=== PATIENT | male | born 1960 | race Asian ===

== ENCOUNTER 2017-10-17 00:03 | Emergency (ER) | payer OTHER ==
[2017-10-17 00:07] VITALS: TEMP 98.1
[2017-10-17 00:43] VITALS: RESP 18; O2SAT 96
[2017-10-17 00:45] VITALS: BP 151/89; PULSE 85
--- NOTE | 2017-10-17 00:48 | EDPHY ---
H & P Stated Complaint: HTN & dizzy Time Seen by Provider: 10/17/17 00:24 HPI/ROS: Chief Complaint: Dizzy, hypertension HPI: 57-year-old male with a history of hypertension presenting with 2 days of intermittent dizziness. Patient states he has been checking his blood pressure has been getting as high as 170 systolic. He has been checking it multiple times a day. He has also noticed he has been having some dizziness with the room spinning. This morning he woke up, sat up from bed and turned his head and the whole room began spinning. This last for about half a minute. Is no nausea or vomiting. No headache. No fevers or chills. Did have viral upper respiratory symptoms several days ago but these have since improved. ROS: 10 point Review of Systems is negative except as noted in the HPI. PMH: Hypertension Social History: No smoking, no alcohol, no recreational drug use Family History: non-contributory Physical Exam: Gen: Awake, Alert, No Distress HEENT: Nose: no rhinorrhea Eyes: PERRLA, EOMI Mouth: Moist mucosa Neck: Supple, no JVD Chest: nontender, lungs clear to auscultation Heart: S1, S2 normal, no murmur Abd: Soft, non-tender, no guarding Back: no CVA tenderness, no midline tenderness Ext: no edema, non-tender Skin: no rash Neuro: CN II-XII intact, Sensation grossly intact, Strength 5/5 in bilateral upper and lower extremities, normal finger-nose, normal Romberg positive Cirilo-Hallpike test to the right - Personal History Current Tetanus/Diphtheria Vaccine: Yes Current Tetanus Diphtheria and Acellular Pertussis (TDAP): Yes Tetanus Vaccine Date: within 10 years - Medical/Surgical History Hx Asthma: No Hx Chronic Respiratory Disease: No Hx Diabetes: No Hx Cardiac Disease: No Hx Renal Disease: No Hx Cirrhosis: No Hx Alcoholism: No Hx HIV/AIDS: No Hx Splenectomy or Spleen Trauma: No Other PMH: HTN - Social History Smoking Status: Former smoker Constitutional: Initial Vital Signs Temperature (C) 36.7 C 10/17/17 00:05 Heart Rate 106 H 10/17/17 00:05 Respiratory Rate 20 10/17/17 00:05 Blood Pressure 149/93 H 10/17/17 00:05 O2 Sat (%) 97 10/17/17 00:05 O2 Delivery Mode Room Air Allergies/Adverse Reactions: No Known Allergies Allergy (Unverified 04/13/13 22:58) Home Medications: Medication Instructions Recorded amLODIPine BESYLATE [Norvasc] 10 mg PO DAILY 04/13/13 Duloxetine HCl [Cymbalta] 30 mg PO Q2D 04/14/13 Duloxetine HCl [Cymbalta] 60 mg PO Q2D 04/14/13 Md Hankins [id number] 04/14/13 Pharmacy Complete 04/14/13 04/14/13 Meclizine HCl [Meclizine HCl 25 mg 25 mg PO BID #10 tab 10/17/17 (RX,OTC)] Medical Decision Making ED Course/Re-evaluation: 57-year-old male with positional vertigo with a positive Cirilo-Hallpike test. Will perform the Rubens maneuver and reassess. Patient is improved. I have reassured him about his blood pressure. I think this is secondary to his dizziness. He has no headache or any other neurologic findings. Will discharge with follow-up with primary care physician, return for any concerns. Departure - Departure Disposition: Home, Routine, Self-Care Clinical Impression: Benign positional vertigo Condition: Good Instructions: Benign Paroxysmal Positional Vertigo (ED) Additional Instructions: You may take meclizine as needed for your vertigo. Follow up with her primary care physician in 2-3 days for re-evaluation. Return to the emergency department for uncontrolled vertigo, nausea, vomiting, fevers, chills, or any other concerns. Referrals: Dustin Davison MD [Primary Care Provider] - As per Instructions Prescriptions: Meclizine HCl [Meclizine HCl 25 mg (RX,OTC)] 25 mg PO BID #10 tab
== END 2017-10-17 01:07 | disposition home or self-care (01) ==
DX: H81.10 Benign paroxysmal vertigo, unspecified ear (principal); I10 Essential (primary) hypertension; Z87.891 Personal history of nicotine dependence